=== PATIENT | female | born 1945 ===

== ENCOUNTER 2018-07-16 06:41 | Day surgery (SDC) | payer OTHER | END 2018-07-16 10:35 | disposition home or self-care (01) | LOC: AMB-ENDOS 06:41 → CIR.AMB 10:15 → AMB-ENDOS 10:35 | DX: K57.30 Diverticulosis of large intestine without perforation or abscess without bleeding (principal); K64.8 Other hemorrhoids; Z86.010 Personal history of colon polyps ==